=== PATIENT | male | born 1990 | race Hispanic/Latino ===

== ENCOUNTER 2020-10-28 09:50 | Emergency (ER) | payer SELFPAY ==
[2020-10-28] MEDS ORDERED: Dexamethasone 10 MG/ML VIAL ONE (10:32)
--- NOTE | 2020-10-28 11:57 | RAD ---
XR Chest 1 View Portable History: Cough Comparison: None. Findings: Lungs are clear. No pneumothorax or effusion. Cardiac silhouette and mediastinal contours a re within normal limits. No acute osseous abnormality. Impression: No acute intrathoracic abnormality.
[2020-10-28 16:46] LABS: SARS-CoV-2 MS2 Positive; SARS-CoV-2 N Gene Negative; SARS-CoV-2 S Gene Negative; SARS-CoV-2 by NAA Not Detected (NotDetected); SARS-CoV-2 orf1ab Negative
== END 2020-10-28 12:50 | disposition home or self-care (01) ==
LOC: ERS 09:50
DX: J02.9 Acute pharyngitis, unspecified (principal); Z20.822 Contact with and (suspected) exposure to COVID-19
CPT/HCPCS: 71045; 87081; 87430; 87635; J1100; U0003